=== PATIENT | female | born 1940 | race Hispanic/Latino ===

== ENCOUNTER 2025-07-10 06:54 | Observation (INO) | payer MEDICARE ==
[2025-07-08 10:31] LABS: BASOPHILS % 0.5 % (0.0-1.0); EOSINOPHILS % 2.3 % (0.0-6.0); LYMPHOCYTES % 14.8 % (18.0-39.1); MONOCYTES % 7.1 % (4.4-11.3); NEUTROPHILS % 74.9 % (38.7-80.0); RED CELL DISTRIBUTION WIDTH 12.5 % (11.7-14.4)
[2025-07-08 10:55] LABS: EST GLOMERULAR FILTRATION RATE 86.0 ML/MIN (>=60)
[2025-07-08 11:47] LABS: INR 0.88
[~2025-07-10] VITALS: Ht 154.9 cm; Wt 73.5 kg
[~2025-07-10 06:54] MED LIST: ATORVASTATIN CA10 MG PO; GABAPENTIN300 MG PO; OMEGA 3 FISH O1 EACH PO; OS-CAL 500+D T1 EACH PO; VITAMIN B-121000 MCG PO; ZESTRIL10 MG PO
[2025-07-10] MEDS ORDERED: LIDOCAINE HCL 2% LOCAL INJ 5 ML SDV VIAL INJ ONE (08:46)
[2025-07-10] MEDS ORDERED: FENTANYL CITRATE/PF 100MCG/2 ML INJ ONE (08:46)
[2025-07-10] MEDS ORDERED: ROCURONIUM BROMIDE 1 ML IV ONE (08:46)
[2025-07-10] MEDS ORDERED: PROPOFOL IV EMULSION 10 MG/ML 20 ML VIAL ONE ×2 (08:46→11:19)
[2025-07-10] MEDS ORDERED: DEXAMETHASONE SOD PHOS INJ 4 MG/ML SDV ONE (10:04)
[2025-07-10] MEDS ORDERED: ONDANSETRON HCL INJ 2MG/ML 2ML 2 MG/ML VIAL ONE (10:04)
[2025-07-10] MEDS ORDERED: EPHEDRINE SULFATE INJ 50 MG/ML VIAL ONE (10:08)
[2025-07-10] MEDS ORDERED: ACETAMINOPHEN 1000 MG/100 ML 100 ML IV ONE (10:11)
[2025-07-10] MEDS ORDERED: SUGAMMADEX SODIUM 200 MG/2 ML VIAL IV ONE (10:26)
[2025-07-10] MEDS ORDERED: HYDROCODON-ACE1 EA12 PO (11:39)
[2025-07-10] MEDS ORDERED: ACETAMINOPHEN 325 MG TAB PO PRN (11:45)
[2025-07-10] MEDS ORDERED: OXYCODONE/ACETAMINOPHEN 5-325 1 EACH TABLET PO PRN (11:45)
[2025-07-10] MEDS ORDERED: MAGNESIUM/ALUMINUM/SIMETHICONE 30 ML UDC PO PRN (11:45)
[2025-07-10] MEDS ORDERED: PROMETHAZINE HCL (IM) 25 MG/ML VIAL IM PRN (11:45)
[2025-07-10] MEDS ORDERED: CEPACOL SORE THROAT LOZENGES PO PRN (11:45)
[2025-07-10] MEDS ORDERED: CARISOPRODOL 350 MG TAB PO PRN (11:45)
[2025-07-10] MEDS: LACTATED RINGER'S 1,000 ML ONE (12:26)
[2025-07-10] MEDS: CEFAZOLIN SODIUM 2 GM ONE (12:26)
[2025-07-10] MEDS: ONDANSETRON HCL INJ 2MG/ML 2ML 2 MG/ML VIAL IV PRN (13:11)
[2025-07-10] MEDS: Morphine 10mg syringe 10 MG/ML INJ IV PRN (13:11)
[2025-07-10 13:29] VITALS: BP 124/72; PULSE 77; RESP 14; TEMP 97.2; O2SAT 97
[2025-07-10] MEDS ORDERED: SEVOFLURANE INHAL SOLN 250 ML PEN BTL ONE (13:29)
[2025-07-10 13:42] VITALS: BP 124/72; PULSE 77; RESP 14; TEMP 97.2; O2SAT 97
[2025-07-10] MEDS: OXYCODONE/ACETAMINOPHEN 5-325 1 EACH TABLET PO PRN (15:48)
[2025-07-10] MEDS: LACTATED RINGER'S 1,000 ML IV SCH (15:54)
[2025-07-10 16:11] VITALS: BP 136/71; PULSE 86; RESP 19; TEMP 98.2; O2SAT 100
[2025-07-10 19:29] VITALS: BP 133/73; PULSE 95; RESP 21; TEMP 98.1; O2SAT 98
[2025-07-10 21:00] VITALS: BP 133/73; PULSE 95; RESP 21; TEMP 98.1; O2SAT 98
[2025-07-10] MEDS: GABAPENTIN 300 MG CAP PO SCH (21:42)
[2025-07-10] MEDS: ATORVASTATIN 10 MG TAB PO SCH (21:43)
[2025-07-10] MEDS: ZOLPIDEM TARTRATE 5 MG TAB PO PRN (23:43)
[2025-07-11 00:06] VITALS: BP 146/84; PULSE 84; RESP 20; TEMP 97.8; O2SAT 98
[2025-07-11 04:45] VITALS: BP 108/62; PULSE 81; RESP 18; TEMP 98.2; O2SAT 99
[2025-07-11 08:00] VITALS: BP 132/63; PULSE 80; RESP 17; TEMP 98.3; O2SAT 98
[2025-07-11 09:00] VITALS: BP 132/63; PULSE 80; RESP 17; TEMP 98.3; O2SAT 98
[2025-07-11] MEDS: LISINOPRIL 10 MG TAB PO SCH (09:53)
[2025-07-11] MEDS: CYANOCOBALAMIN 1,000 MCG TAB PO SCH (09:54)
[2025-07-11 12:00] VITALS: BP 120/56; PULSE 82; RESP 18; TEMP 98.1; O2SAT 99
[2025-07-11 16:15] VITALS: BP 126/64; PULSE 75; RESP 17; TEMP 98.3; O2SAT 96
== END 2025-07-11 18:06 | disposition home or self-care (01) ==
LOC: OR 06:54 → PACU V 11:38 → MED/SURG3 12:55
PROVIDERS: ADMIT Neurological Surgery; ATTEND Neurological Surgery
DX: M48.062 Spinal stenosis, lumbar region with neurogenic claudication (principal); I10 Essential (primary) hypertension; M81.0 Age-related osteoporosis without current pathological fracture; M19.90 Unspecified osteoarthritis, unspecified site; Z01.810 Encounter for preprocedural cardiovascular examination; Z01.812 Encounter for preprocedural laboratory examination; Z01.818 Encounter for other preprocedural examination
CPT/HCPCS: 36415; 63047; 63048; 71046; 72020; 80048; 85025; 85610; 85730; 86850; 86870; 86880; 86900; 86905; 88304; 88311; 93005; 97116; 97161; 97530; 99001; G0378 ×2; J0131; J0690 ×2; J1100; J2003; J2270; J2405; J2704; J3010; J7121 ×2